=== PATIENT | male | born 1930 | race African-American/Black ===

== ENCOUNTER 2018-02-09 15:08 | Emergency (ER) | payer OTHER, MEDICAID ==
[~2018-02-09] VITALS: Ht 167.6 cm; Wt 65.0 kg
[2018-02-09] MEDS ORDERED: PROP10TA10 PO (15:16)
[2018-02-09] MEDS ORDERED: FURO-152 PO (15:16)
[2018-02-09 16:21] LABS: BASOPHILS % 0.1 % (0.0-2.0); CHLORIDE 108 mEq/L (98-107); HEMATOCRIT. 44.5 % (42.0-52.0); HEMOGLOBIN. 14.6 g/dL (14.0-18.0); LYMPHOCYTES % 10.8 % (20.0-50.0); MEAN CORPUSCULAR HEMOGLOBIN 31.9 pg (28.0-32.0); MEAN CORPUSCULAR VOLUME 97.5 fL (80.0-94.0); MEAN PLATELET VOLUME 9.2 fl (7.4-10.4); MONOCYTES % 6.8 % (2.0-8.0); NEUTROPHILS % 82.3 % (40.0-76.0); PLATELET 133 x1000/uL (130-400); RED BLOOD CELL COUNT 4.57 mill/uL (4.7-6.1)
[2018-02-09] MEDS ORDERED: FUROSEMIDE 20MG/2ML VIAL IVP ONE (17:00)
[2018-02-09] MEDS ORDERED: ASPIRIN 81MG TABLET PO ONE (17:00)
[2018-02-09 18:56] VITALS: BP 129/81
== END 2018-02-09 19:29 | disposition short-term general hospital (02) ==
LOC: ER 15:08 → CANBEDREQ 21:09
DX: T83.29XA Other mechanical complication of graft of urinary organ, initial encounter (principal); I11.0 Hypertensive heart disease with heart failure; I50.9 Heart failure, unspecified; Z95.0 Presence of cardiac pacemaker; Z79.899 Other long term (current) drug therapy
CPT/HCPCS: 36415; 71045; 80053; 83880; 84484; 85025; 87804; 93005; 96374; 99291; J1940